=== PATIENT | female | born 1975 | race American Indian/Alaskan Native ===

== ENCOUNTER 2017-10-02 00:22 | Emergency (ER) | payer SELFPAY ==
[2017-10-02] MEDS ORDERED: DUONEB *Not for PRN Use IH ONE ×3 (00:37→02:47)
[2017-10-02 02:51] LABS: HCG Qualitative,Urine Negative (Negative)
--- NOTE | 2017-10-02 03:20 | XRay Report ---
FINAL REPORT EXAM: XR CHEST ROUTINE 2V HISTORY: cough COMPARISON: None available. FINDINGS:: Frontal and lateral views of the chest obtained. Cardiac silhouette is within normal limits. No focal consolidation or effusion. No pneumothorax. Visualized bony thorax is grossly intact. IMPRESSION:: No acute findings.
--- NOTE | 2017-10-02 07:54 | Emergency Department Report ---
HPI - General Chief Complaint: Upper Respiratory Infection Time Seen by Provider: 10/02/17 07:51 - HPI HPI: Patient is a 41-year-old male with a history of bronchitis who presents to ED complaining of intermittent all symptoms July 2017. Patient states that since the cold weather her bronchitis is flaring up intermittently. Patient states that she ran out of her albuterol inhaler yesterday. Patient states last night she just had some difficulty breathing and could not get her inhaler so she came in today. Patient states she feels a bit congested. She denies fevers as chills/nausea/vomiting/chest pain/sob. ED Past Medical Hx - Past Medical History Additional medical history: Bronchitis - Surgical History Past Surgical History?: No - Social History Smoking Status: Current Some Day Smoker Substance Use Type: None - Medications Home Medications: Home Medications Medication Instructions Recorded Confirmed Last Taken Type ALBUTEROL Inhaler 1 puff IH BID 10/02/17 10/02/17 Unknown History ALBUTEROL Inhaler [ProAir HFA 2 puff IH QID PRN #1 pump 10/02/17 Unknown Rx Inhaler] Acetamin/Codeine 120-12Mg/5 ml 5 ml PO TID PRN #60 ml 10/02/17 Unknown Rx [Tylenol/Codeine] Benzonatate [Tessalon Perles] 100 mg PO Q8HR #24 capsule 10/02/17 Unknown Rx predniSONE [Deltasone] 10 mg PO QDAY #5 tab 10/02/17 Unknown Rx ED Review of Systems ROS: Stated complaint: EJ/ SOB Other details as noted in HPI Constitutional: denies: chills, fever Eyes: denies: eye pain, eye discharge, vision change ENT: denies: ear pain, throat pain Respiratory: cough. denies: shortness of breath, wheezing Cardiovascular: denies: chest pain, palpitations Endocrine: no symptoms reported Gastrointestinal: denies: abdominal pain, nausea, diarrhea Genitourinary: denies: urgency, dysuria, discharge Musculoskeletal: denies: back pain, joint swelling, arthralgia Skin: denies: rash, lesions Neurological: denies: headache, weakness, paresthesias Psychiatric: denies: anxiety, depression Hematological/Lymphatic: denies: easy bleeding, easy bruising Physical Exam - Physical Exam Vital Signs: Vital Signs 10/02/17 10/02/17 10/02/17 00:41 00:46 01:33 Temperature 98.1 F Pulse Rate 112 H Pulse Rate [ 85 89 Anterior Bilateral Throughout] Respiratory 20 Rate Respiratory 18 15 Rate [Anterior Bilateral Throughout] Blood Pressure 143/99 O2 Sat by Pulse 96 Oximetry 10/02/17 10/02/17 02:50 03:00 Temperature Pulse Rate Pulse Rate [ 87 88 Anterior Bilateral Throughout] Respiratory Rate Respiratory 18 18 Rate [Anterior Bilateral Throughout] Blood Pressure O2 Sat by Pulse Oximetry Physical Exam: GENERAL: Alert and oriented x3, no apparent distress, Normal Gait, atraumatic. HEAD: Head is normocephalic and a-traumatic. NOSE: Nose symetrical, Nontender,Nares appeared normal. MOUTH:Mouth is well hydrated and without lesions. Tonsils nonerythematous or swollen, Uvula midline, Tongue not elevated. Mucous membranes are moist. Posterior pharynx clear, no exudate or lesions. Patent airways. NECK: Supple. Non edematous, No carotid bruits. No lymphadenopathy or thyromegaly. No C-spine tenderness LUNGS: Symetrical with respiration, No wheezing, no rales or crackles, CTAB. HEART: S1, S2 present, regular rate and rhythm without murmur, no rubs, no gallops. Non tender to palpation ABDOMEN: No organomegaly was noted,Positive bowel sounds, soft, and non- distended. . Nontender to palpation on all Quadrants, NO CVA tenderness. SKIN: Warm and dry, No lesions, No ulceration or induration present. ED Course Vital Signs 10/02/17 10/02/17 10/02/17 00:41 00:46 01:33 Temperature 98.1 F Pulse Rate 112 H Pulse Rate [ 85 89 Anterior Bilateral Throughout] Respiratory 20 Rate Respiratory 18 15 Rate [Anterior Bilateral Throughout] Blood Pressure 143/99 O2 Sat by Pulse 96 Oximetry 10/02/17 10/02/17 02:50 03:00 Temperature Pulse Rate Pulse Rate [ 87 88 Anterior Bilateral Throughout] Respiratory Rate Respiratory 18 18 Rate [Anterior Bilateral Throughout] Blood Pressure O2 Sat by Pulse Oximetry ED Medical Decision Making - Radiology Data Radiology results: report reviewed, image reviewed FINAL REPORT EXAM: XR CHEST ROUTINE 2V HISTORY: cough COMPARISON: None available. FINDINGS:: Frontal and lateral views of the chest obtained. Cardiac silhouette is within normal limits. No focal consolidation or effusion. No pneumothorax. Visualized bony thorax is grossly intact. IMPRESSION:: No acute findings. Transcribed By: LMA Dictated By: CATHY YANCEY MD Electronically Authenticated By: CATHY YANCEY MD Signed Date/Time: 10/01/17 2318 - Medical Decision Making 41-year-old female presented with bronchitis ED course: Patient received 2 breathing treatments with DuoNeb, decadron in ED. Patient reports feeling much better afterwards. I discussed the patient was sent home on albuterol versus a couple of days of steroids. I discussed the patient to follow up with her primary care doctor. Discussed the patient's symptoms worsen or she thought these symptoms return to ED immediately Chest x-ray shows no acute abnormalities. I discussed this findings with the patient. Vital signs are normal. Patient is in no acute or respiratory distress. Critical care attestation.: If time is entered above; I have spent that time in minutes in the direct care of this critically ill patient, excluding procedure time. ED Disposition Clinical Impression: Bronchitis Disposition: DC-01 TO HOME OR SELFCARE Is pt being admited?: No Does the pt Need Aspirin: No Condition: Stable Instructions: Chronic Bronchitis (ED) Additional Instructions: Make sure to follow up with the primary care physician as discussed. Take all your medications as you've been prescribed. If you have any worsening symptoms or develop new symptoms please return to ED immediately. Prescriptions: Acetamin/Codeine 120-12Mg/5 ml [Tylenol/Codeine] 5 ml PO TID PRN #60 ml PRN Reason: Pain ALBUTEROL Inhaler [ProAir HFA Inhaler] 2 puff IH QID PRN #1 pump PRN Reason: Shortness Of Breath Benzonatate [Tessalon Perles] 100 mg PO Q8HR #24 capsule predniSONE [Deltasone] 10 mg PO QDAY #5 tab Referrals: PRIMARY CARE, [Primary Care Provider] - 3-5 Days [facility] [Outside] - 3-5 Days [facility] [Outside] - 3-5 Days [facility] [Outside] - 3-5 Days Forms: Work/School Release Form(ED) Time of Disposition: 08:27
[2017-10-02] MEDS ORDERED: DECADRON IM ONE (08:11)
[2017-10-02] MEDS ORDERED: ROBITUSSIN PO ONE (08:13)
[2017-10-02 08:48] VITALS: BP 158/95
== END 2017-10-02 08:47 | disposition home or self-care (01) ==
LOC: ED 00:22
DX: J40 Bronchitis, not specified as acute or chronic (principal); F17.200 Nicotine dependence, unspecified, uncomplicated
CPT/HCPCS: 71046; 81025; 93005; 93010; 94640; 96372; 99284; J1100

== ENCOUNTER 2017-10-25 05:17 | Emergency (ER) | payer SELFPAY ==
[2017-10-25 05:51] LABS: Basophils # (Auto) 0.1 K/mm3 (0.0-0.1); Eosinophils # (Auto) 0.4 K/mm3 (0.0-0.4); Eosinophils % (Auto) 4.7 % (0.0-4.3); Hematocrit 39.6 % (30.3-42.9); Hemoglobin 13.1 gm/dl (10.1-14.3); Lymphocytes % (Auto) 31.4 % (13.4-35.0); Mean Corpuscular HGB Conc 33 % (30-34); Mean Corpuscular Hemoglobin 30 pg (28-32); Mean Corpuscular Volume 90 fl (79-97); Monocytes # (Auto) 0.8 K/mm3 (0.0-0.8); Monocytes % (Auto) 8.7 % (0.0-7.3); Platelet Count 341 K/mm3 (140-440); Red Blood Count 4.39 M/mm3 (3.65-5.03); Red Cell Distribution Width 14.7 % (13.2-15.2)
[2017-10-25 06:02] LABS: BUN/Creatinine Ratio 12; Blood Urea Nitrogen 7 mg/dL (7-17); Calcium 8.7 mg/dL (8.4-10.2); Hemolysis Index 6
--- NOTE | 2017-10-25 06:03 | XRay Report ---
FINAL REPORT EXAM: XR CHEST ROUTINE 2V HISTORY: Shortness of breath TECHNIQUE: PA and lateral chest radiographs PRIORS: 10/02/2017 FINDINGS: No mediastinal shift. Cardiac silhouette is not enlarged. No pneumothorax, effusion, or focal pulmonary opacity. No acute skeletal finding. IMPRESSION: No focal pulmonary opacity.
[2017-10-25] MEDS ORDERED: VIBRAMYCIN PO ONE (07:14)
[2017-10-25] MEDS ORDERED: ATROVENT IH ONE (07:14)
[2017-10-25] MEDS ORDERED: PROVENTIL IH ONE (07:14)
--- NOTE | 2017-10-25 07:20 | Emergency Department Report ---
ED Shortness of Breath HPI - General Chief Complaint: Dyspnea/Respdistress Stated Complaint: EJ Time Seen by Provider: 10/25/17 06:05 Source: patient Mode of arrival: Ambulatory Limitations: No Limitations - History of Present Illness Initial Comments: Ms. Thao is a 41-year-old female who presents with shortness of breath and wheezing. Her illness began in July when she had a flulike syndrome. This is her fourth visit since the ED since that time. She was treated with bronchodilator therapy and prednisone. She also was treated with Tessalon Perles. She is using her albuterol MDI constantly. consequently she has run out of this medication. She stated that she had one episode of bronchitis at age 15. She did not have childhood asthma. However she ded begin to have wheezing when she moved from [place] 6-7 years ago. Her doctor treated it as an allergic bronchospasm due to seasonal allergies. She does not have official diagnosis of asthma; however she has been wheezing for several years. No primary care physician. She does not have health insurance. She lost her long-term job last summer. She has started a new job. She started smoking tobacco one year ago. She also lives with a smoker. Patient also discovered a lump on her right breast 1 month ago MD Complaint: shortness of breath -: month(s) (3) Severity: moderate Quality: other (chest aching back aching) Consistency: intermittent Improves With: bronchodilators Context: recent URI Associated Symptoms: cough (nonproductive), other (denies fever) - Related Data Home Medications Medication Instructions Recorded Confirmed Last Taken ALBUTEROL Inhaler 1 puff IH BID 10/02/17 10/25/17 10/25/17 Previous Rx's Medication Instructions Recorded Last Taken Type ALBUTEROL Inhaler [ProAir HFA 2 puff IH QID PRN #1 pump 10/02/17 10/25/17 Rx Inhaler] Allergies Allergy/AdvReac Type Severity Reaction Status Date / Time No Known Allergies Allergy Verified 10/02/17 08:12 ED Review of Systems ROS: Stated complaint: EJ Other details as noted in HPI Comment: All other systems reviewed and negative Constitutional: denies: fever, malaise Respiratory: cough Cardiovascular: chest pain ED Past Medical Hx - Past Medical History Previous Medical History?: Yes Hx Asthma: Yes Additional medical history: Bronchitis - Surgical History Past Surgical History?: No - Social History Smoking Status: Former Smoker Substance Use Type: Alcohol - Medications Home Medications: Home Medications Medication Instructions Recorded Confirmed Last Taken Type ALBUTEROL Inhaler 1 puff IH BID 10/02/17 10/25/17 10/25/17 History ALBUTEROL Inhaler [ProAir HFA 2 puff IH QID PRN #1 pump 10/02/17 10/25/17 Rx Inhaler] ED Physical Exam - General Limitations: No Limitations General appearance: alert, in no apparent distress - Head Head exam: Present: atraumatic, normocephalic - Eye Eye exam: Present: normal appearance - ENT ENT exam: Present: mucous membranes moist - Neck Neck exam: Present: normal inspection - Respiratory Respiratory exam: Present: normal lung sounds bilaterally, wheezes (end expiratory wheezes). Absent: respiratory distress, rales, rhonchi, stridor - Cardiovascular Cardiovascular Exam: Present: regular rate, normal rhythm, normal heart sounds. Absent: bradycardia, tachycardia, systolic murmur, diastolic murmur, rubs, gallop - GI/Abdominal GI/Abdominal exam: Present: soft, normal bowel sounds. Absent: distended, tenderness, guarding, rebound - Extremities Exam Extremities exam: Present: normal inspection - Back Exam Back exam: Present: normal inspection, full ROM - Neurological Exam Neurological exam: Present: alert, oriented X3 - Psychiatric Psychiatric exam: Present: normal affect, normal mood - Skin Skin exam: Present: warm, dry, intact, normal color, other (on breast exam there is a 1 cm nodular lump at the inferior crease of the breast). Absent: rash ED Course Vital Signs 10/25/17 10/25/17 10/25/17 05:20 05:24 05:30 Temperature 97.7 F Pulse Rate 100 H 98 H 94 H Respiratory 23 24 17 Rate Blood Pressure 153/103 157/90 Blood Pressure [Left] O2 Sat by Pulse 99 99 96 Oximetry 10/25/17 10/25/17 10/25/17 05:38 06:00 06:16 Temperature 97.9 F Pulse Rate 101 H 98 H 97 H Respiratory 23 21 Rate Blood Pressure 154/97 154/97 Blood Pressure [Left] O2 Sat by Pulse 98 95 93 Oximetry 10/25/17 10/25/17 10/25/17 06:30 06:46 07:00 Temperature Pulse Rate Respiratory Rate Blood Pressure 154/97 154/97 157/90 Blood Pressure [Left] O2 Sat by Pulse 94 92 91 Oximetry 10/25/17 10/25/17 10/25/17 07:15 07:29 07:30 Temperature 98.2 F Pulse Rate 100 H 98 H Respiratory 20 18 15 Rate Blood Pressure 157/89 156/94 Blood Pressure 157/89 [Left] O2 Sat by Pulse 97 97 98 Oximetry 10/25/17 10/25/17 10/25/17 08:00 08:16 08:30 Temperature Pulse Rate 106 H 94 H 97 H Respiratory 17 18 15 Rate Blood Pressure 156/94 156/94 154/97 Blood Pressure [Left] O2 Sat by Pulse 96 96 Oximetry 10/25/17 10/25/17 10/25/17 08:46 09:00 09:16 Temperature Pulse Rate 108 H 98 H 101 H Respiratory 26 H 24 27 H Rate Blood Pressure 156/94 154/93 154/97 Blood Pressure [Left] O2 Sat by Pulse 96 95 93 Oximetry 10/25/17 10/25/17 10/25/17 09:46 10:00 10:16 Temperature Pulse Rate 122 H 104 H 117 H Respiratory 27 H 25 H 29 H Rate Blood Pressure 154/97 154/97 154/93 Blood Pressure [Left] O2 Sat by Pulse 95 97 Oximetry 10/25/17 10:30 Temperature Pulse Rate 114 H Respiratory 23 Rate Blood Pressure 147/86 Blood Pressure [Left] O2 Sat by Pulse 96 Oximetry ED Medical Decision Making - Lab Data Result diagrams: 10/25/17 05:36 10/25/17 05:36 Laboratory Results - last 24 hr 10/25/17 10/25/17 10/25/17 05:36 05:36 05:36 WBC 9.6 RBC 4.39 Hgb 13.1 Hct 39.6 MCV 90 MCH 30 MCHC 33 RDW 14.7 Plt Count 341 Lymph % (Auto) 31.4 Rice % (Auto) 8.7 H Eos % (Auto) 4.7 H Baso % (Auto) 1.0 Lymph # 3.0 Rice # 0.8 Eos # 0.4 Baso # 0.1 Seg Neutrophils % 54.2 Seg Neutrophils # 5.2 Sodium 139 Potassium 4.3 Chloride 101.3 Carbon Dioxide 25 Anion Gap 17 BUN 7 Creatinine 0.6 L Estimated GFR > 60 BUN/Creatinine Ratio 12 Glucose 123 H Calcium 8.7 HCG, Qual Negative Vital Signs - 24 hr 10/25/17 10/25/17 10/25/17 05:20 05:24 05:30 Temperature 97.7 F Pulse Rate 100 H 98 H 94 H Respiratory 23 24 17 Rate Blood Pressure 153/103 157/90 O2 Sat by Pulse 99 99 96 Oximetry 10/25/17 10/25/17 10/25/17 05:38 06:00 06:16 Temperature 97.9 F Pulse Rate 101 H 98 H 97 H Respiratory 23 21 Rate Blood Pressure 154/97 154/97 O2 Sat by Pulse 98 95 93 Oximetry 10/25/17 06:30 Temperature Pulse Rate Respiratory Rate Blood Pressure 154/97 O2 Sat by Pulse 94 Oximetry - EKG Data -: EKG Interpreted by Hi - EKG Data 10/25/17 07:25 EKG obtained at 533 Normal sinus rhythm rate of 90 normal axis normal intervals U wave present no signs of ischemia - Medical Decision Making Bronchospasm due to undiagnosed asthma, allergic rhinitis or bronchitis. Due to 4 months of symptoms, antibiotics are indicated. Also prescribed albuterol MDI. I have referred patient to nearby clinic for evaluation of right breast. Also recommended urgent mammogram. Critical care attestation.: If time is entered above; I have spent that time in minutes in the direct care of this critically ill patient, excluding procedure time. ED Disposition Clinical Impression: Bronchospasm with bronchitis, acute, Breast mass, right Disposition: DC-01 TO HOME OR SELFCARE Is pt being admited?: No Does the pt Need Aspirin: No Condition: Stable Instructions: Acute Bronchitis (ED), Breast Mass (ED) Additional Instructions: Please contact for free or reduced cost mammogram. Referrals: CANDELARIO MALCOLM MD [Primary Care Provider] - 3-5 Days [facility] [Outside] - 3-5 Days Forms: Work/School Release Form(ED) Time of Disposition: 11:22
[2017-10-25 11:29] VITALS: BP 147/86
== END 2017-10-25 11:36 | disposition home or self-care (01) ==
LOC: ED 05:17
DX: J20.9 Acute bronchitis, unspecified (principal); N63.0 Unspecified lump in unspecified breast; Z87.891 Personal history of nicotine dependence
CPT/HCPCS: 36415; 71046; 80048; 84703; 85025; 93005; 93010; 94640

== ENCOUNTER 2017-10-29 11:19 | Inpatient (IN) | payer SELFPAY ==
[2017-11-02] MEDS ORDERED: TYLENOL PO PRN (10:40)
[2017-11-02] MEDS ORDERED: ALUM-MAG HYDROX-SIMETH 200-200-20MG/5ML PO PRN (10:42)
[2017-11-02] MEDS ORDERED: MILK OF MAGNESIA PO PRN (10:43)
--- NOTE | 2017-11-02 13:31 | Progress Note ---
Assessment and Plan Assessment and plan: Ms. Ellie Thao (all of her documentation h-n-p/ekg/etc... is under Thao, Dinah Kern) is a 30-year-old woman who presented with altered mental status and was intubated CT head report no acute findings CTA of the chest reported no pulmonary embolism Urinalysis unremarkable for UTI Negative UDS -Acute hypoxic respiratory failure currently on a mechanical ventilator: Weaning attempt, pulmonology is following -Accelerated hypertension: Treated with antihypertensives -Acute bronchospasms most likely due to acute asthma exacerbation: Treated with IV steroids, neb -Acute metabolic encephalopathy, poa, due to above -Suspect Status Asthimaticus, poa, resolved -Tobacco dependency: advise to stop Extubated 11/01/17 d/w Dr. Hernandez, then transfer out of the icu History Interval history: Patient was seen and examined. Follow-up on current diagnosis. Overnight uneventful. Patient denies any chest pain, shortness breath, nausea/vomiting or severe headaches. Imaging, nursing note, chart, labs and old chart reviewed. Discussed with patient. Patient states she was having an asthma attack for shortness of breath or wheezing then she panic and passed out. Her albuterol inhaler wasn't working, she's not sure if it was out of resolution or not. He was sent to appear emergency department and all of her medical records are under her cousins name, Dinah Thao Hospitalist Physical - Physical exam Narrative exam: GEN: deconditioned, NAD, AWAKE, ALERT, ORIENTATED 3 HEENT: NCAT, EOMI, PERRL, OP Clear NECK: supple, no adenopathy, no thyromegaly, no JVD CVS/HEART: RRR, NORMAL S1S2, pulses present bilaterally CHEST/LUNGS: Diminished breath sounds bilaterally, Symmetrical chest expansion, adequate air entry bilaterally GI/Abdomen: soft, NTND, good bowel sounds, no guarding or rebound /Bladder: no suprapubic tenderness, no CVA or paraspinal tenderness EXT/Skin: no c/c/e, no obvious rash MSK: FROM x 4 Neuro: CN 2-12 grossly intact, no new focal deficits Psych: calm - Constitutional Vitals: Temp Pulse Resp BP Pulse Ox 98.1 F 79 18 149/92 98 11/02/17 11:55 11/02/17 11:55 11/02/17 11:55 11/02/17 11:55 11/02/17 11:55 Results - Labs Labs: Laboratory Last Values Troponin T < 0.010 ng/mL (0.00-0.029) 11/02/17 10:33
[2017-11-02] MEDS ORDERED: PROVENTIL IH PRN (13:41)
[2017-11-02] MEDS: HABITROL TD SCH (15:12)
[2017-11-02] MEDS: LOVENOX SUB-Q SCH (15:13)
[2017-11-02] MEDS: BROVANA NEBU IH SCH (15:36)
[2017-11-02] MEDS: PULMICORT IH SCH ×2 (15:36→19:54)
[2017-11-02] MEDS ORDERED: DUONEB *Not for PRN Use IH SCH (16:00)
[2017-11-02] MEDS ORDERED: ZOFRAN IV PRN (18:39)
[2017-11-02] MEDS: DUONEB *Not for PRN Use IH SCH (19:54)
[2017-11-03] MEDS ORDERED: AMBIEN PO ONE (01:10)
[2017-11-03] MEDS: BROVANA NEBU IH SCH ×2 (01:23→10:48)
[2017-11-03 08:10] LABS: Hematocrit 36.4 % (30.3-42.9); Hemoglobin 11.8 gm/dl (10.1-14.3); Mean Corpuscular HGB Conc 33 % (30-34); Mean Corpuscular Hemoglobin 29 pg (28-32); Mean Corpuscular Volume 90 fl (79-97); Platelet Count 260 K/mm3 (140-440); Red Blood Count 4.04 M/mm3 (3.65-5.03); Red Cell Distribution Width 14.5 % (13.2-15.2)
[2017-11-03 08:28] LABS: BUN/Creatinine Ratio 22; Blood Urea Nitrogen 11 mg/dL (7-17); Calcium 8.4 mg/dL (8.4-10.2); Hemolysis Index 3
[2017-11-03] MEDS: DUONEB *Not for PRN Use IH SCH (10:48)
[2017-11-03] MEDS: PULMICORT IH SCH (10:48)
[2017-11-03] MEDS: LOVENOX SUB-Q SCH (12:03)
[2017-11-03] MEDS: HABITROL TD SCH (12:03)
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
[2017-11-03 17:27] VITALS: BP 131/92
[2017-11-03] MEDS ORDERED: PEPCID PO ONE (18:00)
--- NOTE | 2017-11-05 13:25 | Consultation ---
Date of Service: Attending Dr: SONIYA CHAND MD cc: ~ Consultation Draft History of Present Illness Consult date: 10/29/17 Requesting physician: RUDDY CROW Reason for consult: other (hypercapnic respiratory failure) Past History Past Medical History: other (unable to obtain due to MS and vent) Past Surgical History: Other (unable to obtain due to MS and vent) Social history: other (unable to obtain due to MS and vent) Family history: other (unable to obtain due to MS and vent) Medications and Allergies Allergies Allergy/AdvReac Type Severity Reaction Status Date / Time No Known Allergies Allergy Verified 10/29/17 08:03 Active Meds: Active Medications Al Hydrox/Mg Hydrox/Simethicone (Alum-Mag Hydrox-Simeth [id number]/5ml) 30 ml PO Q4H PRN PRN Reason: Indigestion Bisacodyl (Dulcolax) 10 mg GA QDAY PRN PRN Reason: constipation unrelieved by MOM Enoxaparin Sodium (Lovenox) 40 mg SUB-Q QDAY [place] Hydrophilic Ointment (Vaseline Lip Therapy) 1 applic TP Q2HR PRN PRN Reason: Dry Lips Propofol (Diprivan 10 Mg/Ml) 1,000 mg in 100 mls @ 1.633 mls/hr IV TITR [place]; 5 MCG/KG/MIN PRN Reason: Protocol Last Admin: 10/29/17 07:55 Dose: 30 mcg/kg/min, 9.798 mls/hr Lorazepam 100 mg/ Sodium Chloride/ Miscellaneous Information 100 mls @ 1 mls/ hr IV TITR [place]; 1 MG/HR PRN Reason: Protocol Last Titration: 10/29/17 12:03 Dose: 3 mg/hr, 3 mls/hr Piperacillin Sod/Tazobactam Sod (Zosyn/Ns 4.5gm/100ml) 4.5 gm in 100 mls @ 200 mls/hr IV Q8HR [place] PRN Reason: Protocol Vancomycin HCl 1,750 mg/ (Sodium Chloride) 517.5 mls @ 333.333 mls/hr IV ONCE.ED ONE Stop: 10/29/17 14:33 Vancomycin HCl 1,250 mg/ (Sodium Chloride) 262.5 mls @ 166.667 mls/hr IV Q12H [place] Magnesium Sulfate (Magnesium Sulfate 2gm/50ml) 2 gm in 50 mls @ 100 mls/hr IV ONCE ONE Stop: 10/29/17 12:37 Magnesium Hydroxide (Milk Of Magnesia) 30 ml PO Q4H PRN PRN Reason: Constipation Multi-Ingred Cream/Lotion/Oil/Oint (Artificial Tears Ophth Oint) 1 applic OU Q4HR PRN PRN Reason: Dry Eye(s) Sodium Chloride (Nacl 0.9% 500 Ml) 1 ml IV DIRECT [place] Vancomycin HCl (Vancomycin Pharmacy To Dose) 1 each IV PKCONSULT [place] PRN Reason: Protocol Physical Examination Vital signs: Vital Signs Pulse Ox 94 10/29/17 07:40 Results - Laboratory Findings CBC and BMP: 10/30/17 03:33 10/30/17 03:33 ABG POC ABG pH 7.160 (7.35-7.45) L 10/29/17 08:56 POC ABG pCO2 65.9 (35-45) H 10/29/17 08:56 POC ABG pO2 366 (80-105) H 10/29/17 08:56 POC ABG HCO3 23.5 10/29/17 08:56 POC ABG Total CO2 25 10/29/17 08:56 POC ABG O2 Sat 100 10/29/17 08:56 PT/INR, D-dimer PT 12.7 Sec. (12.2-14.9) 10/29/17 08:26 INR 0.91 (0.87-1.13) 10/29/17 08:26 D-Dimer 2941.03 ng/mlDDU (0-234) H 10/29/17 08:26 Abnormal lab findings: Abnormal Labs 10/29/17 10/29/17 10/29/17 07:51 08:26 08:26 Lymph % (Auto) [place] % (Auto) Eos % (Auto) APTT 22.2 L D-Dimer 2941.03 H POC ABG pH POC ABG pCO2 POC ABG pO2 Carbon Dioxide 21 L Creatinine 0.6 L Glucose 170 H POC Glucose 232 H Lactic Acid Calcium 8.2 L 10/29/17 10/29/17 10/29/17 08:26 08:26 08:56 Lymph % (Auto) 38.6 H [place] % (Auto) 9.6 H Eos % (Auto) 5.3 H APTT D-Dimer POC ABG pH 7.160 L POC ABG pCO2 65.9 H POC ABG pO2 366 H Carbon Dioxide Creatinine Glucose POC Glucose Lactic Acid 2.60 H* Calcium Assessment and Plan 30 y/o female with acute respiratory failure 1. Change steroids to 60q6 2. Add BID pulmicort and brovana 3. Wean sedation to rass of 0 or gonzalez of 2 4. Ok with abx therapy but CXR is clear 5. Will obtain more history from family when available CCT 31 MTDD
--- NOTE | 2017-11-05 13:45 | History and Physical Report ---
History of Present Illness Date of examination: 10/29/17 Date of admission: 10/29/17 Chief complaint: resp failure History of present illness: 30 yo BF who presents with unknown PMH with respiratory distress. PT. was found by EMS obtunded with labored respirations and audible wheezing. Pt. was intubated upon arrival to ER. PCO2 noted to have ABG 7.16/66/366. CXR with no infiltrates, elevated d-dimer but CTA negative. She received Ativan with intubation and is currently on propofol. No family at bedside. All hx obtained from ER physiscian and ER record. Past History Past Medical History: other (unable to obtain due to MS and vent) Past Surgical History: Other (unable to obtain due to MS and vent) Social history: other (unable to obtain due to MS and vent) Family history: other (unable to obtain due to MS and vent) Medications and Allergies Allergies Allergy/AdvReac Type Severity Reaction Status Date / Time No Known Allergies Allergy Verified 10/29/17 08:03 Active Meds: Active Medications Hydrophilic Ointment (Vaseline Lip Therapy) 1 applic TP Q2HR PRN PRN Reason: Dry Lips Propofol (Diprivan 10 Mg/Ml) 1,000 mg in 100 mls @ 1.633 mls/hr IV TITR [place]; 5 MCG/KG/MIN PRN Reason: Protocol Last Admin: 10/29/17 07:55 Dose: 30 mcg/kg/min, 9.798 mls/hr Lorazepam 100 mg/ Sodium Chloride/ Miscellaneous Information 100 mls @ 1 mls/ hr IV TITR [place]; 1 MG/HR PRN Reason: Protocol Last Admin: 10/29/17 09:28 Dose: 2 mg/hr, 2 mls/hr Multi-Ingred Cream/Lotion/Oil/Oint (Artificial Tears Ophth Oint) 1 applic OU Q4HR PRN PRN Reason: Dry Eye(s) Sodium Chloride (Nacl 0.9% 500 Ml) 1 ml IV DIRECT [place] Review of Systems ROS unobtainable: due to endotracheal tube, due to mental status Exam - Constitutional Vitals: Temp Pulse Resp BP Pulse Ox 97.2 F L 100 H 18 186/123 100 10/29/17 09:44 10/29/17 09:32 10/29/17 09:32 10/29/17 09:32 10/29/17 09:32 General appearance: Present: no acute distress, well-nourished, other (orally intubated) - EENT Eyes: Present: PERRL ENT: hearing intact, clear oral mucosa - Neck Neck: Present: supple, normal ROM - Respiratory Respiratory effort: normal Respiratory: bilateral: diminished, rhonchi, wheezing - Cardiovascular Heart Sounds: Present: S1 & S2. Absent: rub, click - Extremities Extremities: pulses symmetrical, No edema Peripheral Pulses: within normal limits - Abdominal General gastrointestinal: Present: soft, non-tender, non-distended, normal bowel sounds Female genitourinary: Present: normal - Integumentary Integumentary: Present: clear, warm, dry - Musculoskeletal Musculoskeletal: gait normal, strength equal bilaterally - Psychiatric Psychiatric: appropriate mood/affect, intact judgment & insight - Neurologic Neurologic: CNII-XII intact, moves all extremities Results - Labs CBC & Chem 7: 10/29/17 08:26 10/29/17 08:26 Labs: Laboratory Last Values WBC 8.5 K/mm3 (4.5-11.0) 10/29/17 08:26 RBC 4.24 M/mm3 (3.65-5.03) 10/29/17 08:26 Hgb 12.6 gm/dl (10.1-14.3) 10/29/17 08:26 Hct 38.8 % (30.3-42.9) 10/29/17 08:26 MCV 92 fl (79-97) 10/29/17 08:26 MCH 30 pg (28-32) 10/29/17 08:26 MCHC 33 % (30-34) 10/29/17 08:26 RDW 14.6 % (13.2-15.2) 10/29/17 08:26 Plt Count 245 K/mm3 (140-440) 10/29/17 08:26 Lymph % (Auto) 38.6 % (13.4-35.0) H 10/29/17 08:26 [place] % (Auto) 9.6 % (0.0-7.3) H 10/29/17 08:26 Eos % (Auto) 5.3 % (0.0-4.3) H 10/29/17 08:26 Baso % (Auto) 1.1 % (0.0-1.8) 10/29/17 08: Lymph # 3.3 K/mm3 (1.2-5.4) 10/29/17 08: [place] # 0.8 K/mm3 (0.0-0.8) 10/29/17 08:26 Eos # 0.4 K/mm3 (0.0-0.4) 10/29/17 08: Baso # 0.1 K/mm3 (0.0-0.1) 10/29/17 08:26 Seg Neutrophils % 45.4 % (40.0-70.0) 10/29/17 08: Seg Neutrophils # 3.9 K/mm3 (1.8-7.7) 10/29/17 08:26 PT 12.7 Sec. (12.2-14.9) 10/29/17 08: INR 0.91 (0.87-1.13) 10/29/17 08: APTT 22.2 Sec. (24.2-36.6) L 10/29/17 08:26 D-Dimer 2941.03 ng/mlDDU (0-234) H 10/29/17 08:26 POC ABG pH 7.160 (7.35-7.45) L 10/29/17 08:56 POC ABG pCO2 65.9 (35-45) H 10/29/17 08:56 POC ABG pO2 366 (80-105) H 10/29/17 08:56 POC ABG HCO3 23.5 10/29/17 08:56 POC ABG Total CO2 25 10/29/17 08:56 POC ABG O2 Sat 100 10/29/17 08:56 POC ABG Base Excess -5 10/29/17 08:56 FiO2 100 % 10/29/17 08:56 Sodium 137 mmol/L (137-145) 10/29/17 08:26 Potassium 4.5 mmol/L (3.6-5.0) 10/29/17 08:26 Chloride 102.2 mmol/L (98-107) 10/29/17 08:26 Carbon Dioxide 21 mmol/L (22-30) L 10/29/17 08:26 Anion Gap 18 mmol/L 10/29/17 08:26 BUN 8 mg/dL (7-17) 10/29/17 08:26 Creatinine 0.6 mg/dL (0.7-1.2) L 10/29/17 08:26 Estimated GFR > 60 ml/min 10/29/17 08:26 BUN/Creatinine Ratio 13 % 10/29/17 08:26 Glucose 170 mg/dL (65-100) H 10/29/17 08:26 Lactic Acid 0.90 mmol/L (0.7-2.0) 10/29/17 09:41 Calcium 8.2 mg/dL (8.4-10.2) L 10/29/17 08:26 Magnesium 1.90 mg/dL (1.7-2.3) 10/29/17 08:26 Total Bilirubin < 0.20 mg/dL (0.1-1.2) 10/29/17 08:26 Direct Bilirubin < 0.2 mg/dL (0-0.2) 10/29/17 08:26 Indirect Bilirubin 0.0 mg/dL 10/29/17 08:26 AST 15 units/L (5-40) 10/29/17 08:26 ALT 14 units/L (7-56) 10/29/17 08:26 Alkaline Phosphatase 79 units/L (35-129) 10/29/17 08:26 Total Creatine Kinase 68 units/L (30-135) 10/29/17 08:26 CK-MB (CK-2) 1.6 ng/mL (0.0-4.0) 10/29/17 08: CK-MB (CK-2) Rel Index 2.3 (0-4) 10/29/17 08:26 Troponin T < 0.010 ng/mL (0.00-0.029) 10/29/17 08:26 NT-Pro-B Natriuret Pep 15.41 pg/mL (0-450) 10/29/17 08:26 Total Protein 6.6 g/dL (6.3-8.2) 10/29/17 08:26 Albumin 4.0 g/dL (3.9-5) 10/29/17 08:26 Albumin/Globulin Ratio 1.5 % 10/29/17 08:26 HCG, Qual Negative (Negative) 10/29/17 08:26 Urine Color Straw (Yellow) 10/29/17 09:19 Urine Turbidity Clear (Clear) 10/29/17 09:19 Urine pH 6.0 (5.0-7.0) 10/29/17 09:19 Ur Specific [place] 1.014 (1.003-1.030) 10/29/17 09:19 Urine Protein 30 mg/dl mg/dL (Negative) 10/29/17 09:19 Urine Glucose (UA) 150 mg/dL (Negative) 10/29/17 09:19 Urine Ketones Neg mg/dL (Negative) 10/29/17 09:19 Urine Blood Neg (Negative) 10/29/17 09:19 Urine Nitrite Neg (Negative) 10/29/17 09:19 Ur Reducing Substances Not Reportable 10/29/17 09:19 Urine Bilirubin Neg (Negative) 10/29/17 09:19 Urine Ictotest Not Reportable 10/29/17 09:19 Urine Urobilinogen < 2.0 mg/dL (<2.0) 10/29/17 09:19 Ur Leukocyte Esterase Neg (Negative) 10/29/17 09:19 Urine WBC (Auto) 1.0 /HPF (0.0-6.0) 10/29/17 09:19 Urine RBC (Auto) < 1.0 /HPF (0.0-6.0) 10/29/17 09:19 U Epithel Cells (Auto) 1.0 /HPF (0-13.0) 10/29/17 09:19 Urine Mucus Few /HPF 10/29/17 09:19 Urine HCG, Qual Negative (Negative) 10/29/17 09:19 Urine Opiates Screen Presumptive negative 10/29/17 09:19 Urine Methadone Screen Presumptive negative 10/29/17 09:19 Ur Barbiturates Screen Presumptive negative 10/29/17 09:19 Ur Phencyclidine Scrn Presumptive negative 10/29/17 09:19 Ur Amphetamines Screen Presumptive negative 10/29/17 09:19 U Benzodiazepines Scrn Presumptive negative 10/29/17 09:19 Urine Cocaine Screen Presumptive negative 10/29/17 09:19 U Marijuana (THC) Screen Presumptive negative 10/29/17 09:19 Drugs of Abuse Note Disclamer 10/29/17 09:19 Blood Type O POSITIVE 10/29/17 08:26 Antibody Screen Negative 10/29/17 08:26 Assessment and Plan Assessment and plan: Acute hypercapneic respiratory failure. Etiology may be secondary to asthma exac vs reactive airway dz. Unable to obtain any PMH but pt. with significant wheezing. IV steroids, bronchdilators, pulm consultation. Wean vent as cornelio Toxic metabolic encephalopathy. Cont to treat underlying med issues. Sedation holiday with Neuro checks. CT head negative. Consider EEG SIRS. Empiric abx. MTDD
--- NOTE | 2017-11-05 13:49 | Physician Progress Note ---
Progress Note Draft Assessment and Plan 30 y/o female with acute respiratory failure 1. Continue steroids at current dosing 2. Continue BID pulmicort and brovana 3. Start to wean sedation to off 4. Will attempt PSV trials once off sedation 5. Maybe a candidate for extubation later today 6. Will need PFT's CCT 31 Subjective Date of service: 10/30/17 Interval history: No acute events. ABG much improved this am. Sedated on vent. Cousin at bedside. Objective Vital Signs - 12hr 10/29/17 10/29/17 10/29/17 21:27 21:30 21:45 Pulse Rate 109 H 108 H Pulse Rate [ 110 H Anterior Bilateral Throughout] Respiratory 26 H 25 H Rate Respiratory 26 H Rate [Anterior Bilateral Throughout] Blood Pressure 127/89 123/83 O2 Sat by Pulse 97 98 Oximetry 10/29/17 10/29/17 10/29/17 22:00 22:15 22:30 Pulse Rate 107 H 106 H 106 H Pulse Rate [ Anterior Bilateral Throughout] Respiratory 25 H 25 H 26 H Rate Respiratory Rate [Anterior Bilateral Throughout] Blood Pressure 122/84 127/82 127/82 O2 Sat by Pulse 98 99 99 Oximetry 10/29/17 10/29/17 10/29/17 22:45 23:00 23:15 Pulse Rate 105 H 108 H 102 H Pulse Rate [ Anterior Bilateral Throughout] Respiratory 26 H 25 H 23 Rate Respiratory Rate [Anterior Bilateral Throughout] Blood Pressure 130/80 192/127 163/108 O2 Sat by Pulse 99 100 100 Oximetry 10/29/17 10/30/17 10/30/17 23:30 00:38 02:00 Pulse Rate 108 H 108 H Pulse Rate [ Anterior Bilateral Throughout] Respiratory 28 H 18 Rate Respiratory Rate [Anterior Bilateral Throughout] Blood Pressure 192/127 192/127 O2 Sat by Pulse 100 99 Oximetry Constitutional: no acute distress, comatose (secondary to medication) Eyes: non-icteric ENT: other (orally intubated and sedated) Neck: supple Effort: normal Ascultation: Bilateral: diminished breath sounds, wheezes Percussion: Bilateral: not dull Cardiovascular: regular rate and rhythm (sinus tachy) Gastrointestinal: soft, non-tender Integumentary: normal Extremities: no cyanosis, no edema, pink and warm Neurologic: unable to assess CBC and BMP: 10/30/17 03:33 10/30/17 03:33 ABG, PT/INR, D-dimer: ABG POC ABG pH 7.367 (7.35-7.45) 10/30/17 04:30 POC ABG pCO2 41.7 (35-45) 10/30/17 04:30 POC ABG pO2 211 (80-105) H 10/30/17 04:30 POC ABG HCO3 23.9 10/30/17 04:30 POC ABG Total CO2 25 10/30/17 04:30 POC ABG O2 Sat 100 10/30/17 04:30 PT/INR, D-dimer PT 12.7 Sec. (12.2-14.9) 10/29/17 08:26 INR 0.91 (0.87-1.13) 10/29/17 08:26 D-Dimer 2941.03 ng/mlDDU (0-234) H 10/29/17 08:26 Abnormal lab findings: Abnormal Labs 10/29/17 10/29/17 10/29/17 07:51 08:26 08:26 WBC Lymph % (Auto) [place] % (Auto) Eos % (Auto) Seg Neuts % (Manual) Lymphocytes % (Manual) Seg Neutrophils # Man Lymphocytes # (Manual) APTT 22.2 L D-Dimer 2941.03 H POC ABG pH POC ABG pCO2 POC ABG pO2 Carbon Dioxide 21 L Creatinine 0.6 L Glucose 170 H POC Glucose 232 H Lactic Acid Calcium 8.2 L 10/29/17 10/29/17 10/29/17 08:26 08:26 08:56 WBC Lymph % (Auto) 38.6 H [place] % (Auto) 9.6 H Eos % (Auto) 5.3 H Seg Neuts % (Manual) Lymphocytes % (Manual) Seg Neutrophils # Man Lymphocytes # (Manual) APTT D-Dimer POC ABG pH 7.160 L POC ABG pCO2 65.9 H POC ABG pO2 366 H Carbon Dioxide Creatinine Glucose POC Glucose Lactic Acid 2.60 H* Calcium 10/30/17 10/30/17 10/30/17 00:53 03:33 03:33 WBC 12.9 H Lymph % (Auto) [place] % (Auto) Eos % (Auto) Seg Neuts % (Manual) 92.0 H Lymphocytes % (Manual) 7.0 L Seg Neutrophils # Man 11.9 H Lymphocytes # (Manual) 0.9 L APTT D-Dimer POC ABG pH POC ABG pCO2 POC ABG pO2 Carbon Dioxide Creatinine 0.6 L Glucose 160 H POC Glucose 133 H Lactic Acid Calcium 10/30/17 04:30 WBC Lymph % (Auto) [place] % (Auto) Eos % (Auto) Seg Neuts % (Manual) Lymphocytes % (Manual) Seg Neutrophils # Man Lymphocytes # (Manual) APTT D-Dimer POC ABG pH POC ABG pCO2 POC ABG pO2 211 H Carbon Dioxide Creatinine Glucose POC Glucose Lactic Acid Calcium Chest x-ray: image reviewed (clear) MTDD
--- NOTE | 2017-11-05 13:53 | Physician Progress Note ---
Assessment and Plan Assessment and plan: Patient is 30-year-old woman who presented with altered mental status and was intubated CT head report no acute findings CTA of the chest reported no pulmonary embolism Urinalysis unremarkable for UTI Negative UDS -Acute hypoxic respiratory failure currently on a mechanical ventilator: Weaning attempt, pulmonology is following -Accelerated hypertension: Treated with antihypertensives -Acute bronchospasms most likely due to acute asthma exacerbation: Treated with IV steroids, neb -Acute metabolic encephalopathy, poa, due to above -Suspect Status Asthimaticus, poa History Interval history: Patient was seen and examined. Follow-up on current diagnosis of respiratory failure, still intubated. Overnight uneventful. Imaging, nursing note, chart, labs and old chart reviewed. Discussed with cousin at bedside. Hospitalist Physical - Physical exam Narrative exam: GEN: Intubated HEENT: NCAT, pupils react, ET tube in place NECK: supple, no adenopathy, no thyromegaly, no JVD CVS/HEART: Regular tachycardia NORMAL S1S2, pulses present bilaterally CHEST/LUNGS: Symmetrical chest expansion, good air entry bilaterally GI/Abdomen: soft, NTND, good bowel sounds, no guarding or rebound /Bladder: no suprapubic tenderness, no CVA or paraspinal tenderness EXT/Skin: no c/c/e, no obvious rash Neuro: CN 2-12 grossly intact, doesn't follow commands Psych: calm - Constitutional Vitals: Temp Pulse Resp BP Pulse Ox 98.6 F 130 H 27 H 156/117 98 10/30/17 08:00 10/30/17 11:20 10/30/17 11:20 10/30/17 11:20 10/30/17 11:20 General appearance: Present: no acute distress, well-nourished, other (orally intubated) Results - Labs CBC & Chem 7: 10/30/17 03:33 10/30/17 03:33 Labs: Laboratory Last Values WBC 12.9 K/mm3 (4.5-11.0) H 10/30/17 03:33 RBC 4.68 M/mm3 (3.65-5.03) 10/30/17 03:33 Hgb 13.5 gm/dl (10.1-14.3) 10/30/17 03:33 Hct 41.9 % (30.3-42.9) 10/30/17 03:33 MCV 90 fl (79-97) 10/30/17 03:33 MCH 29 pg (28-32) 10/30/17 03:33 MCHC 32 % (30-34) 10/30/17 03:33 RDW 15.0 % (13.2-15.2) 10/30/17 03:33 Plt Count 329 K/mm3 (140-440) 10/30/17 03:33 Lymph % (Auto) 38.6 % (13.4-35.0) H 10/29/17 08:26 [place] % (Auto) 9.6 % (0.0-7.3) H 10/29/17 08:26 Eos % (Auto) 5.3 % (0.0-4.3) H 10/29/17 08:26 Baso % (Auto) 1.1 % (0.0-1.8) 10/29/17 08:26 Lymph # 3.3 K/mm3 (1.2-5.4) 10/29/17 08:26 [place] # 0.8 K/mm3 (0.0-0.8) 10/29/17 08:26 Eos # 0.4 K/mm3 (0.0-0.4) 10/29/17 08:26 Baso # 0.1 K/mm3 (0.0-0.1) 10/29/17 08:26 Add Manual Diff Complete 10/30/17 03:33 Total Counted 100 10/30/17 03:33 Seg Neutrophils % [employer] 10/30/17 03:33 Seg Neuts % (Manual) 92.0 % (40.0-70.0) H 10/30/17 03:33 Band Neutrophils % 0 % 10/30/17 03:33 Lymphocytes % (Manual) 7.0 % (13.4-35.0) L 10/30/17 03:33 Reactive Lymphs % (Man) 0 % 10/30/17 03:33 Monocytes % (Manual) 1.0 % (0.0-7.3) 10/30/17 03:33 Eosinophils % (Manual) 0 % (0.0-4.3) 10/30/17 03:33 Basophils % (Manual) 0 % (0.0-1.8) 10/30/17 03:33 Metamyelocytes % 0 % 10/30/17 03:33 Myelocytes % 0 % 10/30/17 03:33 Promyelocytes % 0 % 10/30/17 03:33 Blast Cells % 0 % 10/30/17 03:33 Nucleated RBC % Not Reportable 10/30/17 03:33 Seg Neutrophils # 3.9 K/mm3 (1.8-7.7) 10/29/17 08:26 Seg Neutrophils # Man 11.9 K/mm3 (1.8-7.7) H 10/30/17 03:33 Band Neutrophils # 0.0 K/mm3 10/30/17 03:33 Lymphocytes # (Manual) 0.9 K/mm3 (1.2-5.4) L 10/30/17 03:33 Abs React Lymphs (Man) 0.0 K/mm3 10/30/17 03:33 Monocytes # (Manual) 0.1 K/mm3 (0.0-0.8) 10/30/17 03:33 Eosinophils # (Manual) 0.0 K/mm3 (0.0-0.4) 10/30/17 03:33 Basophils # (Manual) 0.0 K/mm3 (0.0-0.1) 10/30/17 03:33 Metamyelocytes # 0.0 K/mm3 10/30/17 03:33 Myelocytes # 0.0 K/mm3 10/30/17 03:33 Promyelocytes # 0.0 K/mm3 10/30/17 03:33 Blast Cells # 0.0 K/mm3 10/30/17 03:33 WBC Morphology Not Reportable 10/30/17 03:33 Hypersegmented Neuts Not Reportable 10/30/17 03:33 Hyposegmented Neuts Not Reportable 10/30/17 03:33 Hypogranular Neuts Not Reportable 10/30/17 03:33 Smudge Cells Not Reportable 10/30/17 03:33 Toxic Granulation Not Reportable 10/30/17 03:33 Toxic Vacuolation Not Reportable 10/30/17 03:33 Dohle Bodies Not Reportable 10/30/17 03:33 Pelger-Huet Anomaly Not Reportable 10/30/17 03:33 Beny Rods Not Reportable 10/30/17 03:33 Platelet Estimate Consistent w auto 10/30/17 03:33 Clumped Platelets Not Reportable 10/30/17 03:33 Plt Clumps, EDTA Not Reportable 10/30/17 03:33 Large Platelets Not Reportable 10/30/17 03:33 Giant Platelets Not Reportable 10/30/17 03:33 Platelet Satelliting Not Reportable 10/30/17 03:33 Plt Morphology Comment Not Reportable 10/30/17 03:33 RBC Morphology Normal 10/30/17 03:33 Dimorphic RBCs Not Reportable 10/30/17 03:33 Polychromasia Not Reportable 10/30/17 03:33 Hypochromasia Not Reportable 10/30/17 03:33 Poikilocytosis Not Reportable 10/30/17 03:33 Anisocytosis Not Reportable 10/30/17 03:33 Microcytosis Not Reportable 10/30/17 03:33 Macrocytosis Not Reportable 10/30/17 03:33 Spherocytes Not Reportable 10/30/17 03:33 Pappenheimer Bodies Not Reportable 10/30/17 03:33 Sickle Cells Not Reportable 10/30/17 03:33 Target Cells Not Reportable 10/30/17 03:33 Tear Drop Cells Not Reportable 10/30/17 03:33 Ovalocytes Not Reportable 10/30/17 03:33 Helmet Cells Not Reportable 10/30/17 03:33 [place] Bodies Not Reportable 10/30/17 03:33 [place] Rings Not Reportable 10/30/17 03:33 [place] Cells Not Reportable 10/30/17 03:33 Bite Cells Not Reportable 10/30/17 03:33 Crenated Cell Not Reportable 10/30/17 03:33 Elliptocytes Not Reportable 10/30/17 03:33 Acanthocytes (Spur) Not Reportable 10/30/17 03:33 Rouleaux Not Reportable 10/30/17 03:33 Hemoglobin C Crystals Not Reportable 10/30/17 03:33 Schistocytes Not Reportable 10/30/17 03:33 Malaria parasites Not Reportable 10/30/17 03:33 [place] Bodies Not Reportable 10/30/17 03:33 Hem Pathologist Commnt No 10/30/17 03:33 PT 12.7 Sec. (12.2-14.9) 02/26/18 08:26 INR 0.91 (0.87-1.13) 10/29/17 08:26 APTT 22.2 Sec. (24.2-36.6) L 10/29/17 08:26 D-Dimer 2941.03 ng/mlDDU (0-234) H 10/29/17 08:26 POC ABG pH 7.367 (7.35-7.45) 10/30/17 04:30 POC ABG pCO2 41.7 (35-45) 10/30/17 04:30 POC ABG pO2 211 (80-105) H 10/30/17 04:30 POC ABG HCO3 23.9 10/30/17 04:30 POC ABG Total CO2 25 10/30/17 04:30 POC ABG O2 Sat 100 10/30/17 04:30 POC ABG Base Excess -1 10/30/17 04:30 FiO2 50 % 10/30/17 04:30 Sodium 138 mmol/L (137-145) 10/30/17 03:33 Potassium 4.5 mmol/L (3.6-5.0) 10/30/17 03:33 Chloride 101.1 mmol/L (98-107) 10/30/17 03:33 Carbon Dioxide 22 mmol/L (22-30) 10/30/17 03:33 Anion Gap 19 mmol/L 10/30/17 03:33 BUN 7 mg/dL (7-17) 10/30/17 03:33 Creatinine 0.6 mg/dL (0.7-1.2) L 10/30/17 03:33 Estimated GFR > 60 ml/min 10/30/17 03:33 BUN/Creatinine Ratio 12 % 10/30/17 03:33 Glucose 160 mg/dL (65-100) H 10/30/17 03:33 POC Glucose 133 (70-105) H 10/30/17 00:53 Lactic Acid 1.10 mmol/L (0.7-2.0) 10/29/17 12:05 Calcium 8.8 mg/dL (8.4-10.2) 10/30/17 03:33 Magnesium 1.90 mg/dL (1.7-2.3) 10/29/17 08:26 Total Bilirubin < 0.20 mg/dL (0.1-1.2) 10/29/17 08:26 Direct Bilirubin < 0.2 mg/dL (0-0.2) 10/29/17 08: Indirect Bilirubin 0.0 mg/dL 10/29/17 08:26 AST 15 units/L (5-40) 10/29/17 08: ALT 14 units/L (7-56) 10/29/17 08:26 Alkaline Phosphatase 79 units/L (35-129) 10/29/17 08:26 Total Creatine Kinase 68 units/L (30-135) 10/29/17 08:26 CK-MB (CK-2) 1.6 ng/mL (0.0-4.0) 10/29/17 08: CK-MB (CK-2) Rel Index 2.3 (0-4) 10/29/17 08: Troponin T < 0.010 ng/mL (0.00-0.029) 10/29/17 08: NT-Pro-B Natriuret Pep 15.41 pg/mL (0-450) 10/29/17 08:26 Total Protein 6.6 g/dL (6.3-8.2) 10/29/17 08: Albumin 4.0 g/dL (3.9-5) 10/29/17 08: Albumin/Globulin Ratio 1.5 % 10/29/17 08:26 HCG, Qual Negative (Negative) 10/29/17 08:26 Urine Color Straw (Yellow) 10/29/17 09:19 Urine Turbidity Clear (Clear) 10/29/17 09:19 Urine pH 6.0 (5.0-7.0) 10/29/17 09:19 Ur Specific [place] 1.014 (1.003-1.030) 10/29/17 09:19 Urine Protein 30 mg/dl mg/dL (Negative) 10/29/17 09:19 Urine Glucose (UA) 150 mg/dL (Negative) 10/29/17 09:19 Urine Ketones Neg mg/dL (Negative) 10/29/17 09:19 Urine Blood Neg (Negative) 10/29/17 09:19 Urine Nitrite Neg (Negative) 10/29/17 09:19 Ur Reducing Substances Not Reportable 10/29/17 09:19 Urine Bilirubin Neg (Negative) 10/29/17 09:19 Urine Ictotest Not Reportable 10/29/17 09:19 Urine Urobilinogen < 2.0 mg/dL (<2.0) 10/29/17 09:19 Ur Leukocyte Esterase Neg (Negative) 10/29/17 09:19 Urine WBC (Auto) 1.0 /HPF (0.0-6.0) 10/29/17 09:19 Urine RBC (Auto) < 1.0 /HPF (0.0-6.0) 10/29/17 09:19 U Epithel Cells (Auto) 1.0 /HPF (0-13.0) 10/29/17 09:19 Urine Mucus Few /HPF 10/29/17 09:19 Urine HCG, Qual Negative (Negative) 10/29/17 09:19 Urine Opiates Screen Presumptive negative 10/29/17 09:19 Urine Methadone Screen Presumptive negative 10/29/17 09:19 Ur Barbiturates Screen Presumptive negative 10/29/17 09:19 Ur Phencyclidine Scrn Presumptive negative 10/29/17 09:19 Ur Amphetamines Screen Presumptive negative 10/29/17 09:19 U Benzodiazepines Scrn Presumptive negative 10/29/17 09:19 Urine Cocaine Screen Presumptive negative 10/29/17 09:19 U Marijuana (THC) Screen Presumptive negative 10/29/17 09:19 Drugs of Abuse Note Disclamer 10/29/17 09:19 Blood Type O POSITIVE 10/29/17 08:26 Antibody Screen Negative 10/29/17 08:26 MTDD
--- NOTE | 2017-11-05 14:03 | Consultation ---
History of Present Illness Consult date: 10/29/17 Requesting physician: RUDDY CROW Reason for consult: other (hypercapnic respiratory failure) Past History Past Medical History: other (unable to obtain due to MS and vent) Past Surgical History: Other (unable to obtain due to MS and vent) Social history: other (unable to obtain due to MS and vent) Family history: other (unable to obtain due to MS and vent) Medications and Allergies Allergies Allergy/AdvReac Type Severity Reaction Status Date / Time No Known Allergies Allergy Verified 10/29/17 08:03 Active Meds: Active Medications Al Hydrox/Mg Hydrox/Simethicone (Alum-Mag Hydrox-Simeth [phone]/5ml) 30 ml PO Q4H PRN PRN Reason: Indigestion Bisacodyl (Dulcolax) 10 mg IN QDAY PRN PRN Reason: constipation unrelieved by MOM Enoxaparin Sodium (Lovenox) 40 mg SUB-Q QDAY [facility] Hydrophilic Ointment (Vaseline Lip Therapy) 1 applic TP Q2HR PRN PRN Reason: Dry Lips Propofol (Diprivan 10 Mg/Ml) 1,000 mg in 100 mls @ 1.633 mls/hr IV TITR [facility]; 5 MCG/KG/MIN PRN Reason: Protocol Last Admin: 10/29/17 07:55 Dose: 30 mcg/kg/min, 9.798 mls/hr Lorazepam 100 mg/ Sodium Chloride/ Miscellaneous Information 100 mls @ 1 mls/ hr IV TITR [facility]; 1 MG/HR PRN Reason: Protocol Last Titration: 10/29/17 12:03 Dose: 3 mg/hr, 3 mls/hr Piperacillin Sod/Tazobactam Sod (Zosyn/Ns 4.5gm/100ml) 4.5 gm in 100 mls @ 200 mls/hr IV Q8HR [facility] PRN Reason: Protocol Vancomycin HCl 1,750 mg/ (Sodium Chloride) 517.5 mls @ 333.333 mls/hr IV ONCE.ED ONE Stop: 10/29/17 14:33 Vancomycin HCl 1,250 mg/ (Sodium Chloride) 262.5 mls @ 166.667 mls/hr IV Q12H [place] Magnesium Sulfate (Magnesium Sulfate 2gm/50ml) 2 gm in 50 mls @ 100 mls/hr IV ONCE ONE Stop: 10/29/17 12:37 Magnesium Hydroxide (Milk Of Magnesia) 30 ml PO Q4H PRN PRN Reason: Constipation Multi-Ingred Cream/Lotion/Oil/Oint (Artificial Tears Ophth Oint) 1 applic OU Q4HR PRN PRN Reason: Dry Eye(s) Sodium Chloride (Nacl 0.9% 500 Ml) 1 ml IV DIRECT [facility] Vancomycin HCl (Vancomycin Pharmacy To Dose) 1 each IV PKCONSULT [facility] PRN Reason: Protocol Physical Examination Vital signs: Vital Signs Pulse Ox 94 10/29/17 07:40 Results - Laboratory Findings CBC and BMP: 10/30/17 03:33 10/30/17 03:33 ABG POC ABG pH 7.160 (7.35-7.45) L 10/29/17 08:56 POC ABG pCO2 65.9 (35-45) H 10/29/17 08:56 POC ABG pO2 366 (80-105) H 10/29/17 08:56 POC ABG HCO3 23.5 10/29/17 08:56 POC ABG Total CO2 25 10/29/17 08:56 POC ABG O2 Sat 100 10/29/17 08:56 PT/INR, D-dimer PT 12.7 Sec. (12.2-14.9) 10/29/17 08:26 INR 0.91 (0.87-1.13) 10/29/17 08:26 D-Dimer 2941.03 ng/mlDDU (0-234) H 10/29/17 08:26 Abnormal lab findings: Abnormal Labs 10/29/17 10/29/17 10/29/17 07:51 08:26 08:26 Lymph % (Auto) [place] % (Auto) Eos % (Auto) APTT 22.2 L D-Dimer 2941.03 H POC ABG pH POC ABG pCO2 POC ABG pO2 Carbon Dioxide 21 L Creatinine 0.6 L Glucose 170 H POC Glucose 232 H Lactic Acid Calcium 8.2 L 10/29/17 10/29/17 10/29/17 08:26 08:26 08:56 Lymph % (Auto) 38.6 H [place] % (Auto) 9.6 H Eos % (Auto) 5.3 H APTT D-Dimer POC ABG pH 7.160 L POC ABG pCO2 65.9 H POC ABG pO2 366 H Carbon Dioxide Creatinine Glucose POC Glucose Lactic Acid 2.60 H* Calcium Assessment and Plan 42 y/o female with acute respiratory failure 1. Change steroids to [id number] 2. Add BID pulmicort and brovana 3. Wean sedation to rass of 0 or gonzalez of 2 4. Ok with abx therapy but CXR is clear 5. Will obtain more history from family when available CCT 31 MTDD
== END 2017-11-03 18:21 | disposition home or self-care (01) | DRG 208 ==
LOC: 3A 11:19
PROVIDERS: ADMIT Internal Medicine; ATTEND Internal Medicine
PROC: 5A1935Z Respiratory Ventilation, Less than 24 Consecutive Hours (ICD-10-PCS; principal; 2017-10-29)
PROC: 0BH17EZ Insertion of Endotracheal Airway into Trachea, Via Natural or Artificial Opening (ICD-10-PCS; 2017-10-29)
DX: J96.21 Acute and chronic respiratory failure with hypoxia (principal); G93.41 Metabolic encephalopathy; J45.901 Unspecified asthma with (acute) exacerbation; J45.902 Unspecified asthma with status asthmaticus; N39.0 Urinary tract infection, site not specified; I10 Essential (primary) hypertension; F17.200 Nicotine dependence, unspecified, uncomplicated
CPT/HCPCS: 36415; 36600; 70450; 71045; 71275; 80048; 80074; 80307; 81001; 81025; 82140; 82550; 82553; 82803; 82962; 83735; 83880; 84295; 84484; 84703; 85007; 85025; 85027; 85379; 85610; 85730; 86850; 86900; 86901; 87040; 87070; 87205; 93005; 93010; 94002; 94003; 94640; 94760; 96365; 96366; 96375; 96376; 99291; 99292; J0330; J0360; J0696; J1650; J2060; J2405; J2543; J2704; J2930; J3370; J3475; J7040; J7050; Q9967